=== PATIENT | male | born 1985 | race Caucasian/White ===

== ENCOUNTER 2018-01-18 00:30 | Emergency (ER) | payer BC ==
[2018-01-18] MEDS ORDERED: Morphine 4 MG/ML Syringe IVPUSH ONE ×3 (00:34→04:14)
[2018-01-18] MEDS ORDERED: Ondansetron 4 MG/2 ML SDV IVPUSH ONE (00:34)
[2018-01-18] MEDS ORDERED: Sodium Chloride 0.9% 1,000 ML IV ONE (00:39)
--- NOTE | 2018-01-18 00:43 | EDM.PDOC ---
ED HPI GENERAL MEDICAL PROBLEM - General Chief Complaint: Lower Extremity Injury/Pain Stated Complaint: POSSIBLE BROKEN LEFT LEG Time Seen by Provider: 01/18/18 00:35 - History of Present Illness INITIAL COMMENTS - FREE TEXT/NARRATIVE: HISTORY AND PHYSICAL: History of present illness: Patient 32-year-old male presents with a concern of acute left lower extremity injury when he was kicked by a cow on arrival was immobilized with a splint he is noted to have an abrasion an obvious deformity of his distal left leg. He denies other trauma or concern Review of systems: As per history of present illness and below otherwise all systems reviewed and negative. Past medical history: As per history of present illness and as reviewed below otherwise noncontributory. Surgical history: As per history of present illness and as reviewed below otherwise noncontributory. Social history: No reported history of drug or alcohol abuse. Family history: As per history of present illness and as reviewed below otherwise noncontributory. Physical exam: HEENT: Atraumatic, normocephalic, pupils reactive, negative for conjunctival pallor or scleral icterus, mucous membranes moist, throat clear, neck supple, nontender, trachea midline. Lungs: Clear to auscultation, breath sounds equal bilaterally, chest nontender. Heart: S1S2, regular, negative for clicks, rubs, or JVD. Abdomen: Soft, nondistended, nontender. Negative for masses or hepatosplenomegaly. Negative for costovertebral tenderness. Pelvis: Stable nontender. Genitourinary: Deferred. Rectal: Deferred. Extremities: Patient has abrasion distally with a deformity of the medial aspect of his distal left leg neurovascular exam is unremarkable Neuro: Awake, alert, oriented. Cranial nerves II through XII unremarkable. Cerebellum unremarkable. Motor and sensory unremarkable throughout. Exam nonfocal. Diagnostics: X-ray left tib-fib/ankle Therapeutics: Normal saline 1 L bolus morphine 4 mg IV Zofran 4 mg IV Impression: #1 acute injury left lower extremity Definitive disposition and diagnosis as appropriate pending reevaluation and review of above. left ankle Pain Score (Numeric/FACES): 8 - Related Data Allergies Allergy/AdvReac Type Severity Reaction Status Date / Time No Known Allergies Allergy Verified 01/18/18 00:39 Home Meds: Home Meds . [No Known Home Meds] 01/18/18 [History] Review of Systems - Review of Systems Review Of Systems: ROS reveals no pertinent complaints other than HPI. ED EXAM, GENERAL - Physical Exam Exam: See Below (See dictation) Course - Vital Signs Last Recorded V/S: Last Vital Signs Temp 36.3 C 01/18/18 00:30 Pulse 98 01/18/18 00:30 Resp 18 01/18/18 00:30 BP 133/77 01/18/18 00:30 Pulse Ox 96 01/18/18 00:30 - Orders/Labs/Meds Orders: Active Orders 24 hr Category Date Time Status Ankle Min 3V Lt [CR] Stat Exams 01/18/18 00:32 Ordered Tibia Fibula Lt [CR] Stat Exams 01/18/18 00:32 Ordered Sodium Chloride 0.9% [Normal Saline] 1,000 ml Med 01/18/18 00:39 Active IV STAT Medication Orders Sodium Chloride (Normal Saline) 1,000 mls @ 999 mls/hr IV STAT ONE Stop: 01/18/18 01:39 Last Admin: 01/18/18 00:40 Dose: 999 mls/hr Meds: Medications Generic Name Dose Route Start Last Admin Trade Name Freq PRN Reason Stop Dose Admin Sodium Chloride 1,000 mls @ 999 mls/hr 01/18/18 00:39 01/18/18 00:40 Normal Saline IV 01/18/18 01:39 999 mls/hr STAT ONE Administration Discontinued Medications Generic Name Dose Route Start Last Admin Trade Name Freq PRN Reason Stop Dose Admin Morphine Sulfate 4 mg 01/18/18 00:34 01/18/18 00:45 Morphine IVPUSH 01/18/18 00:35 4 mg ONETIME ONE Administration Ondansetron HCl 4 mg 01/18/18 00:34 01/18/18 00:45 Zofran IVPUSH 01/18/18 00:35 4 mg ONETIME ONE Administration Departure - Departure Time of Disposition: 01:09 Disposition: DC/Tfer to Acute Hospital 02 Condition: Good Clinical Impression: Bimalleolar fracture of left ankle - Discharge Information Referrals: Stefano Newton MD [Primary Care Provider] - Forms: ED Department Discharge - My Orders Last 24 Hours: My Active Orders 01/18/18 00:32 Ankle Min 3V Lt [CR] Stat Tibia Fibula Lt [CR] Stat 01/18/18 00:39 Sodium Chloride 0.9% [Normal Saline] 1,000 ml IV STAT - Assessment/Plan Last 24 Hours: My Active Orders 01/18/18 00:32 Ankle Min 3V Lt [CR] Stat Tibia Fibula Lt [CR] Stat 01/18/18 00:39 Sodium Chloride 0.9% [Normal Saline] 1,000 ml IV STAT
--- NOTE | 2018-01-18 16:23 | CR ---
EXAM DATE: 01/18/18 PATIENT'S AGE: 32 Patient: BROOKS AUGUST Facility: [place], [place] Site . Site : 1985 Study: XRay Extremity Left TIB FIB [id number]/26/2018 1:12:40 AM Ordering Physician: Doctor Roman Final Report: INDICATION: Trauma TECHNIQUE: Three views left ankle COMPARISON: None FINDINGS: Bones: Displaced medial malleoli and distal fibular fractures. Possible posterior malleoli fracture for Joint spaces: Widening of the medial and anterior ankle joint space. Widening of the distal tibiofibular joint. Soft tissues: Lateral ankle edema. IMPRESSION: Displaced medial malleoli and distal fibular fractures. Possible posterior malleoli fracture. Widening of the medial and anterior ankle joint spaces and distal tibiofibular joint. Post reduction views recommended. Lateral ankle edema. Dictated by Reyes Medrano MD @ 01/18/2018 1:22:40 AM Dictated by: Reyes Medrano MD @ 01/18/2018 01:22:55 (Electronic Signature) Report Signed by Proxy. [facility]PITALMadeline
== END 2018-01-18 04:36 ==
LOC: MW.ED 00:30
DX: S82.842A Displaced bimalleolar fracture of left lower leg, initial encounter for closed fracture (principal); W55.22XA Struck by cow, initial encounter
CPT/HCPCS: 73590; 96361; 96374; 96375; 96376; 99284; J2270; J2405; J7040; 99283